=== PATIENT | female | born 1930 | race Caucasian/White ===

== ENCOUNTER → 2017-06-20 09:27 | Outpatient (CLI) | payer OTHER ==
[~2017-06-20 09:27] MED LIST: ACCUPRIL40 MG PO; AMLODIPINE BESY10 MG; ASPIRIN EC325 MG; DILTIAZEM 24HR240 MG PO; EMEND80 MG PO; GABAPENTIN300 MG PO; INTESTINEX1 CAP PO; LOSARTAN-HCTZ1 EAC1 PO; MORPHINE SULFAT15 M1 PO; PREDNISONE20 MG PO; SENNA8.6 MG PO; SIMVASTATIN5 MG; SYNTHROID50 MCG; SYNTHROID50 MCG PO; SYNTHROID75 MCG PO; TENORMIN25 MG PO; XARELTO20 MG PO; ZOFRAN8 MG PO; [UNRECOGNIZED DRUG - OTHER] PO; [UNRECOGNIZED DRUG - OTHER] PO
== END | disposition home or self-care (01) ==
LOC: LAB 09:27
DX: I82.211 Chronic embolism and thrombosis of superior vena cava (principal); Z85.44 Personal history of malignant neoplasm of other female genital organs; Z85.72 Personal history of non-Hodgkin lymphomas; I80.8 Phlebitis and thrombophlebitis of other sites; M81.0 Age-related osteoporosis without current pathological fracture; D51.8 Other vitamin B12 deficiency anemias; D63.8 Anemia in other chronic diseases classified elsewhere; E03.8 Other specified hypothyroidism; R97.0 Elevated carcinoembryonic antigen [CEA]; E55.9 Vitamin D deficiency, unspecified; C85.81 Other specified types of non-Hodgkin lymphoma, lymph nodes of head, face, and neck; C51.9 Malignant neoplasm of vulva, unspecified; I10 Essential (primary) hypertension; D51.3 Other dietary vitamin B12 deficiency anemia

== ENCOUNTER 2017-11-03 08:34 | Outpatient (CLI) | payer OTHER | END 2017-11-03 13:12 | disposition home or self-care (01) | LOC: LAB 08:34 | DX: I82.211 Chronic embolism and thrombosis of superior vena cava (principal); Z85.44 Personal history of malignant neoplasm of other female genital organs; Z85.72 Personal history of non-Hodgkin lymphomas; I80.8 Phlebitis and thrombophlebitis of other sites; M81.0 Age-related osteoporosis without current pathological fracture; D51.8 Other vitamin B12 deficiency anemias; D63.8 Anemia in other chronic diseases classified elsewhere; E03.8 Other specified hypothyroidism; R97.0 Elevated carcinoembryonic antigen [CEA]; E55.9 Vitamin D deficiency, unspecified; C85.81 Other specified types of non-Hodgkin lymphoma, lymph nodes of head, face, and neck; C51.9 Malignant neoplasm of vulva, unspecified; I10 Essential (primary) hypertension; D50.8 Other iron deficiency anemias; K90.89 Other intestinal malabsorption; Z96.642 Presence of left artificial hip joint ==

== ENCOUNTER → 2018-05-18 08:23 | Outpatient (CLI) | payer OTHER | END | disposition home or self-care (01) | LOC: LAB 08:23 | DX: I82.211 Chronic embolism and thrombosis of superior vena cava (principal); Z85.44 Personal history of malignant neoplasm of other female genital organs; I80.8 Phlebitis and thrombophlebitis of other sites; M81.0 Age-related osteoporosis without current pathological fracture; D51.8 Other vitamin B12 deficiency anemias; D63.8 Anemia in other chronic diseases classified elsewhere; E03.8 Other specified hypothyroidism; R97.0 Elevated carcinoembryonic antigen [CEA]; E55.9 Vitamin D deficiency, unspecified; C85.81 Other specified types of non-Hodgkin lymphoma, lymph nodes of head, face, and neck; I10 Essential (primary) hypertension; D50.8 Other iron deficiency anemias; K90.89 Other intestinal malabsorption ==

== ENCOUNTER 2018-08-03 09:02 | Outpatient (CLI) | payer OTHER | END 2018-08-03 16:58 | disposition home or self-care (01) | LOC: LAB 09:02 | DX: E03.8 Other specified hypothyroidism (principal); C85.81 Other specified types of non-Hodgkin lymphoma, lymph nodes of head, face, and neck; C85.10 Unspecified B-cell lymphoma, unspecified site; I82.211 Chronic embolism and thrombosis of superior vena cava; Z85.44 Personal history of malignant neoplasm of other female genital organs; Z85.72 Personal history of non-Hodgkin lymphomas; I80.8 Phlebitis and thrombophlebitis of other sites; M81.0 Age-related osteoporosis without current pathological fracture; D51.8 Other vitamin B12 deficiency anemias; D63.8 Anemia in other chronic diseases classified elsewhere; R97.0 Elevated carcinoembryonic antigen [CEA]; E55.9 Vitamin D deficiency, unspecified; C51.9 Malignant neoplasm of vulva, unspecified; I10 Essential (primary) hypertension ==

== ENCOUNTER 2018-10-26 08:38 | Outpatient (CLI) | payer OTHER | END 2018-10-26 08:54 | disposition home or self-care (01) | LOC: LAB 08:38 | DX: I82.211 Chronic embolism and thrombosis of superior vena cava (principal); Z85.44 Personal history of malignant neoplasm of other female genital organs; Z85.72 Personal history of non-Hodgkin lymphomas; I80.8 Phlebitis and thrombophlebitis of other sites; M81.0 Age-related osteoporosis without current pathological fracture; D51.8 Other vitamin B12 deficiency anemias; D63.8 Anemia in other chronic diseases classified elsewhere; E03.8 Other specified hypothyroidism; R97.0 Elevated carcinoembryonic antigen [CEA]; E55.9 Vitamin D deficiency, unspecified; C51.9 Malignant neoplasm of vulva, unspecified; I10 Essential (primary) hypertension; D50.8 Other iron deficiency anemias ==

== ENCOUNTER 2019-03-22 07:53 | Outpatient (CLI) | payer OTHER | END 2019-03-22 08:00 | disposition home or self-care (01) | LOC: LAB 07:53 | DX: C85.81 Other specified types of non-Hodgkin lymphoma, lymph nodes of head, face, and neck (principal); I82.211 Chronic embolism and thrombosis of superior vena cava; Z85.44 Personal history of malignant neoplasm of other female genital organs; M81.0 Age-related osteoporosis without current pathological fracture; D51.0 Vitamin B12 deficiency anemia due to intrinsic factor deficiency; D63.8 Anemia in other chronic diseases classified elsewhere; E03.8 Other specified hypothyroidism; R97.0 Elevated carcinoembryonic antigen [CEA]; E55.9 Vitamin D deficiency, unspecified; I10 Essential (primary) hypertension; D50.8 Other iron deficiency anemias; R94.5 Abnormal results of liver function studies ==